=== PATIENT | female | born 1960 | race Caucasian/White ===

== ENCOUNTER 2019-09-04 16:44 | Emergency (ER) | payer OTHER, SELFPAY ==
[2019-09-04 16:51] VITALS: BP 148/76; PULSE 84; RESP 16; TEMP 36.4; O2SAT 99
--- NOTE | 2019-09-04 16:58 | ED.FEMALEGU ---
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 Patient states that clear vaginal drainage and itchiness started approximately 1 month ago and she was using badges so which seemed to cleared up . Patient states that then came and went and she started using the Monistat 7 which made it much worse this past week . Patient states that the irritation and itchiness is from her darin-region extending into the buttocks. Patient denies any recent use of new creams, lotions, body wash. Denies any excessive exercise or sitting in sweaty/wet clothing. Denies of any douching or recent long baths. Patient does not have any history of chronic yeast infections. States that she went through menopause approximately 5 years ago and has not had any issues with vaginal dryness. Patient denies of any urinary symptoms. No other acute complaints. No acute distress noted. Patient read the plan of care. Related Data Home Medications Medication Instructions Recorded Confirmed cholecalciferol (vitamin D3) 2,000 unit PO HS 12/30/18 09/04/19 cyanocobalamin (vitamin B-12) 1,000 mcg PO HS 12/30/18 09/04/19 omeprazole 40 mg PO HS 12/30/18 09/04/19 Allergies Allergy/AdvReac Type Severity Reaction Status Date / Time NSAIDS (Non-Steroidal AdvReac BLEEDING Verified 09/04/19 17:04 Anti-Inflamma ULCER Review of Systems Review of Systems: Narrative: CONSTITUTIONAL: Denies fever, chills, or sweats. EYES: Denies visual changes, redness, or discharge. ENT: Denies rhinorrhea, congestion, sore throat, or otalgia. CARDIOVASCULAR: Denies chest pain, palpitations, or edema. RESPIRATORY: Denies cough or dyspnea. GASTROINTESTINAL: Denies abdominal pain, nausea, vomiting, or diarrhea. GENITOURINARY: Reports of vaginal irritation, redness, itchiness, clear vaginal discharge and burning SKIN: Denies rash or itching. MUSCULOSKELETAL: Denies back pain, joint pain, or myalgia. NEUROLOGIC: Denies headache, numbness, or weakness. All other systems reviewed are negative, except as documented in HPI. PMFSH Social History Social History Smoking status: Former smoker Second hand tobacco smoke exposure: No Smoking end date: 02/22/07 Alcohol intake: current Comments At the time of my signature, I reviewed and agree with the nursing past medical, surgical, social, and family history. There is no relevant family history pertinent to the patient complaint. Exam Narrative: Exam Narrative: GENERAL: This is a well-nourished, well-developed patient, in no apparent distress. HEAD: normocephalic, atraumatic. EYES: PERRL. Sclera clear/white. Vision is grossly intact. EARS: External ears normal NOSE: External nose normal with no obvious nasal discharge, nares without redness, no rhinorrhea. THROAT: Mucous membranes moist NECK: Neck supple : Patient deferred vaginal exam. Surrounding darin-area erythemic and irritated SKIN: warm, intact with no suspicious lesions or rash, good texture and turgor. NEURO: awake, alert, and oriented to person, place and time. There were no obvious focal neurologic abnormalities. EXTREMITIES: No clubbing, cyanosis, or edema. Course Vital Signs Vital signs: Vital Signs Temperature 97.5 F L 09/04/19 16:51 Pulse Rate 84 09/04/19 16:51 Respiratory Rate 16 09/04/19 16:51 Blood Pressure 148/76 H 09/04/19 16:51 Pulse Oximetry 99 09/04/19 16:51 Temperature 97.5 F L 09/04/19 16:51 Pulse Rate 84 09/04/19 16:51 Respiratory Rate 16 09/04/19 16:51 Blood Pressure 148/76 H 09/04/19 16:51 Pulse Oximetry 99 09/04/19 16:51 Reviewed?patient is informed that they may have pre
== END 2019-09-04 17:20 | disposition home or self-care (01) ==
PROVIDERS: Emergency Provider Nurse Practitioner Family; PCP Internal Medicine
DX: N89.8 Other specified noninflammatory disorders of vagina (principal); Z87.891 Personal history of nicotine dependence
CPT/HCPCS: 81003; 99213; G0463

== ENCOUNTER 2020-12-09 08:58 | Outpatient (CLI) | payer OTHER, SELFPAY ==
--- NOTE | ~2020-12-09 | NM_ITS ---
EXAMINATION: NM hernandez stress w perfusion DATE: 12/09/2020 11:31 INDICATION: Dizziness and giddiness. Hypertension. TECHNIQUE: Rest images were obtained following intravenous administration of 10.4 mCi Tc99m tetrofosm in (Myoview). The patient was infused intravenously with Lexiscan (Regadenoson). Then, 31.7 mCi Tc99m tetrofosmin (Myoview) was administered intravenously, and stress images were obtained in the supine position. Post-rest images were also obtained in the prone position due to breast attenuation artifac t on the anterior wall. Data was reconstructed into short axis and horizontal and vertical long axis SPECT images. Gated SPECT images were also obtained. COMPARISON: None. FINDINGS: There is no definite reversible or fixed perfusion abnormality to suggest ischemia or infar ction. There is normal left ventricular chamber size, wall motion and ejection fraction. Left ventr icular ejection fraction measures 62%. IMPRESSION: 1. Normal myocardial perfusion at rest and during stress. 2. Left ventricular ejection fraction measuring 62%. Reviewed, dictated and finalized at location A.
--- NOTE | 2020-12-09 09:30 | EST_ITS ---
Patient Info Name: Dai Cintron Age: 60 years : 1960 Gender: Female Ht: 67 in Wt: 215 lbs BSA: 2.18 m2 HR: 69 bpm BP: 151 / 98 mmHg Heart Rhythm: Sinus Rhythm Exam Date: 12/09/2020 10:17 AM Exam Location: [facility] Stress Patient Status: Outpatient Admit Date: 12/09/2020 Staff Ordering Physician: Zari Blake Attending Provider: Zari Blake Exercise Technologist: Barbi Choe CT Exercise Physician: Donis Capps DO Exam Type: CA stress hernandez w NM Study Info A regadenoson stress test was performed. Summary 1. 1. Negative lexiscan stress test for ischemic ST changes by ECG criteria. 2. 2. Baseline hypertension. 3. 3. Nuclear scan to follow and will be reported separately. Please correlate with it. 4. 4. Patient informed of the above results. Protocol: Lexiscan Stress ECG Details Stage: REST Duration (min): 0 min : 48 sec HR (bpm): 70 SBP (mmHg): 151 DBP (mmHg): 98 Stage: REST Duration (min): 5 min : 38 sec HR (bpm): 68 SBP (mmHg): 151 DBP (mmHg): 98 Stage: STAGE 1 Duration (min): 1 min : 0 sec HR (bpm): 87 SBP (mmHg): 169 DBP (mmHg): 90 Stage: RECOVERY Duration (min): 1 min : 0 sec HR (bpm): 94 SBP (mmHg): 169 DBP (mmHg): 90 Stage: RECOVERY Duration (min): 2 min : 0 sec HR (bpm): 88 SBP (mmHg): 169 DBP (mmHg): 90 Stage: RECOVERY Duration (min): 2 min : 37 sec HR (bpm): 89 SBP (mmHg): 170 DBP (mmHg): 92 Rest HR: 68 bpm Peak HR: 97 bpm Rest Sys BP: 151 mmHg Peak Sys BP: 170 mmHg Max Pred HR: 162 bpm % Max Pred HR: 60 % Target HR: 138 bpm Max RPP: 16,490 bpm*mmHg Termination Reason: Completed protocol Cardiac Symptoms: Shortness of breath Total Time: 1 min : 0 sec Rest Albright BP: 98 mmHg Peak Albright BP: 92 mmHg Total Dose: 0.4 mg Resting ECG Sinus rhythm. Stress ECG No ST changes. Arrhythmias None. Report Signatures
[2020-12-09 12:10] LABS: Basophils Absolute Auto 0.1 K/mm3 (0.0-0.1); Basophils Percent Auto 0.7 % (0.2-1.2); Eosinophils Absolute Auto 0.1 K/mm3 (0-0.3); Eosinophils Percent Auto 1.2 % (0-4.4); Hematocrit 45.2 % (37.0-47.0); Hemoglobin 15.2 g/dL (12.0-15.0); Immature Granulocyte Absolute 0.04 K/mm3 (0.00-0.031); Immature Granulocyte Percent A 0.4 % (0-0.5); Lymphocytes Absolute Auto 2.59 K/mm3 (0.9-3.2); Lymphocytes Percent Auto 28.6 % (18.3-44.2); Mean Corpuscular HGB Conc 33.6 g/dl (32-36); Mean Corpuscular Hemoglobin 29.2 pg (26-34); Mean Corpuscular Volume 86.9 fl (80-100); Mean Platelet Volume 9.4 fl (7.4-10.4); Monocytes Absolute Auto 0.6 K/mm3 (0.1-0.6); Monocytes Percent Auto 6.2 % (2.6-8.5); Neutrophils Absolute Auto 5.7 K/mm3 (1.3-6.7); Neutrophils Percent Auto 62.9 % (45.5-73.1); Platelet Count Result 337 k/mm3 (150-375); Red Cell Distribution Width 12.8 % (11.5-14.5); White Blood Count 9.1 K/mm3 (4.5-10.0)
[2020-12-09 12:27] LABS: Alanine Aminotransferase 73 U/L (4-35); Alkaline Phosphatase 79 U/L (38-126); Anion Gap 9 mmol/L (8-16); Aspartate Amino Transferase 70 U/L (14-36); Bilirubin,Total 0.8 mg/dL (0.2-1.3); Blood Urea Nitrogen 13 mg/dL (7-17); Calcium 10.2 mg/dL (8.4-10.2); Carbon Dioxide 31 mmol/L (22-30); Chloride 102 mmol/L (98-107); Cholesterol 177 mg/dL (0-200); Estimated Glomerular Filt Rate > 60; Glucose 91 mg/dL (65-110); HDL Direct 74 mg/dL; Potassium 4.1 mmol/L (3.4-5.0); Sodium 142 mmol/L (137-145); Triglycerides 118 mg/dL (<150)
[2020-12-09 12:38] LABS: LDL Cholesterol Direct 75 mg/dL
[2020-12-09 12:54] LABS: Vitamin D 25 Hydroxy 49.5 ng/mL
== END 2020-12-09 08:59 | disposition home or self-care (01) ==
LOC: ANHCARD 09:02
PROVIDERS: PCP Internal Medicine; Visit Provider Clinical Nurse Specialist
DX: E55.9 Vitamin D deficiency, unspecified (principal); R42 Dizziness and giddiness; I10 Essential (primary) hypertension; Z13.228 Encounter for screening for other metabolic disorders
CPT/HCPCS: 36415; 78452; 80053; 80061; 82306; 84443; 85025; 93017; A9502; J2785

== ENCOUNTER 2021-03-25 15:53 | Outpatient (CLI) | payer OTHER, SELFPAY ==
--- NOTE | ~2021-03-25 | CT_ITS ---
EXAMINATION: CTA chest PE protocol DATE: 03/25/2021 16:30 INDICATION: Shortness of breath. COVID positive. TECHNIQUE: Computed tomography (CT) pulmonary angiogram of the chest was performed with 100 mL Omnipa que-350 intravenous contrast. Additional 3D reconstructions utilizing coronal maximum intensity proje ction (MIP) were performed. Automated exposure control and iterative reconstruction technique were em ployed. The dose-length product was 472.11 mGy-cm. COMPARISON: None FINDINGS: Excellent contrast opacification of the pulmonary arteries. There is mild streak artifact from dense contrast in the superior vena cava and right atrium. Minimal scattered respiratory motion artifact wh ich does not significantly limit evaluation. No pulmonary embolism. Peripheral predominant patchy gregg undglass opacities and consolidation throughout both lungs relatively sparing the apices with appeara nce typical for COVID pneumonia. No pleural effusion or pneumothorax. Heart size is normal. No perica rdial effusion. Small amount of atherosclerotic coronary artery calcification at the origin of the le ft coronary artery. Thoracic aorta is normal in caliber with no dissection. Mild likely reactive righ t hilar and mediastinal lymphadenopathy. Cholecystectomy clips the gallbladder fossa. Diffuse hepatic steatosis. Moderate thoracic spondylosis. IMPRESSION: 1. No pulmonary embolism. 2. Scattered bilateral patchy peripheral predominant patchy consolidation and groundglass opacities m ost consistent with COVID pneumonia. 3. Mild likely reactive right hilar and mediastinal lymphadenopathy. Reviewed, dictated and finalized at location A. TH CONCIERGE IMPRESSION: 1. No pulmonary embolism. 2. Scattered bilateral patchy peripheral predominant patchy consolidation and g roundglass opacities most consistent with COVID pneumonia. 3. Mild likely reactive right hilar and mediastinal lymphadenopathy.
[2021-03-25 16:22] LABS: Estimated Glomerular Filt Rate > 60
== END 2021-03-25 15:54 | disposition home or self-care (01) ==
LOC: ANHIMG 15:56
PROVIDERS: PCP Internal Medicine; Visit Provider Internal Medicine
DX: R06.02 Shortness of breath (principal); R09.02 Hypoxemia; R06.00 Dyspnea, unspecified; R91.8 Other nonspecific abnormal finding of lung field; R59.0 Localized enlarged lymph nodes
CPT/HCPCS: 71275; Q9967

== ENCOUNTER 2022-02-12 09:27 | Outpatient (CLI) | payer OTHER, SELFPAY ==
[2022-02-12 18:56] LABS: Basophils Absolute Auto 0.1 K/mm3 (0.0-0.1); Basophils Percent Auto 1.1 % (0.2-1.2); Eosinophils Absolute Auto 0.1 K/mm3 (0-0.3); Eosinophils Percent Auto 1.8 % (0-4.4); Hematocrit 43.9 % (37.0-47.0); Hemoglobin 14.8 g/dL (12.0-15.0); Immature Granulocyte Absolute 0.01 K/mm3 (0.00-0.031); Immature Granulocyte Percent A 0.2 % (0-0.5); Lymphocytes Percent Auto 29.1 % (18.3-44.2); Mean Corpuscular HGB Conc 33.7 g/dl (32-36); Mean Corpuscular Hemoglobin 29.5 pg (26-34); Mean Corpuscular Volume 87.5 fl (80-100); Mean Platelet Volume 9.9 fl (7.4-10.4); Monocytes Absolute Auto 0.6 K/mm3 (0.1-0.6); Monocytes Percent Auto 8.6 % (2.6-8.5); Neutrophils Absolute Auto 3.9 K/mm3 (1.3-6.7); Neutrophils Percent Auto 59.2 % (45.5-73.1); Platelet Count Result 305 k/mm3 (150-375); Red Blood Count 5.02 M/mm3 (4.2-5.4); White Blood Count 6.5 K/mm3 (4.5-10.0)
[2022-02-12 19:00] LABS: Alanine Aminotransferase 22 U/L (6-35); Albumin Level 4.4 g/dL (3.5-5.1); Alkaline Phosphatase 62 U/L (38-126); Anion Gap 4 mmol/L (8-16); Aspartate Amino Transferase 29 U/L (14-36); Bilirubin,Total 0.5 mg/dL (0.2-1.3); Blood Urea Nitrogen 17 mg/dL (7-17); Calcium 9.3 mg/dL (8.4-10.2); Carbon Dioxide 31 mmol/L (22-30); Chloride 104 mmol/L (98-107); Cholesterol 174 mg/dL (0-200); Estimated Glomerular Filt Rate > 60; Glucose 88 mg/dL (65-110); HDL Direct 65 mg/dL; Potassium 4.5 mmol/L (3.4-5.0); Sodium 139 mmol/L (137-145); Triglycerides 73 mg/dL (<150)
[2022-02-12 19:11] LABS: LDL Cholesterol Direct 77 mg/dL
[2022-02-12 19:17] LABS: Creatinine Urine 123.7 mg/dL
[2022-02-12 19:22] LABS: MALB Creatinine Ratio 5.7 mg/g (0-30)
== END 2022-02-12 09:28 | disposition home or self-care (01) ==
LOC: ANHGOSHLAB 09:29
PROVIDERS: PCP Internal Medicine; Visit Provider Internal Medicine
DX: R74.01 Elevation of levels of liver transaminase levels (principal); I10 Essential (primary) hypertension
CPT/HCPCS: 36415; 80053; 80061; 82043; 85025

== ENCOUNTER 2022-09-08 00:39 | Day surgery (SDC) | payer OTHER, SELFPAY ==
[2022-07-10 09:17] VITALS: BMI 30.4
[2022-08-28 13:23] VITALS: BMI 30.4
[2022-09-08 06:25] VITALS: BP 147/84; PULSE 74; RESP 20; TEMP 36.1; O2SAT 97
[2022-09-08] MEDS: LACTATED RINGERS 1,000 ML 150 ML IV CONT (06:38)
--- NOTE | 2022-09-08 07:18 | WPDANESEPPF ---
Anes - Initial Pre Proc Eval Procedure: Operation Date: 09/08/22 07:30 Proposed Procedures p Colonoscopy - Michael Worthy MD Date/Time: 09/08/22 07:18 Surgeon: Michael Worthy MD Pre Op Diagnosis: other fecal abnormalities Patient Data Age: 62 Gender: F Height: 1.7 m Weight: 90.9 kg Last Vital Signs Temp 97 F L 09/08/22 06:25 Pulse 74 09/08/22 06:25 Resp 20 09/08/22 06:25 BP 147/84 H 09/08/22 06:25 Pulse Ox 97 09/08/22 06:25 O2 Del Method Room Air 09/08/22 06:25 Allergies Allergy/AdvReac Type Severity Reaction Status Date / Time NSAIDS (Non-Steroidal AdvReac BLEEDING Verified 09/08/22 06:24 Anti-Inflamma ULCER Home Medications Medication Instructions Recorded Confirmed Type omeprazole 40 mg capsule,delayed 20 mg PO HS 04/01/21 09/07/22 History release sodium,potassium,mag sulfates 17.5 See Rx Instructions PO .COMPLEX 07/27/22 09/07/22 Rx gram-3.13 gram-1.6 gram oral soln #354 mL (Suprep Bowel Prep Kit) doxepin 25 mg capsule 25 mg PO QHS PRN insomnia #30 caps 08/20/22 09/07/22 Rx valsartan 80 mg tablet 80 mg PO DAILY #90 tabs 09/04/22 09/07/22 Rx Patient hx anesthesia problems: none Family hx anesthesia problems: none Results Review: All pre-operative results and documents have been reviewed as part of the pre-operative evaluation. [facility] Past Medical History Medical History Cholecystectomy planned Effusion of knee joint Hypertension Painful patella Surgical History Surgical History H/O: hysterectomy 05/2020 History of Knee joint replacement status Family History Family History Mother Hypertension Father Patient's father is in good health Social History Social History Smoking packs per day: 1 Smoking cigarettes per day: 20.0 Years smoked: 20 Smoking pack-years: 20.00 Smoking status: Former smoker Tobacco type: cigarettes Second hand tobacco smoke exposure: No Smoking end date: 02/22/07 Alcohol intake: never Alcohol use details: occasional Substance use: never Substance use type: does not use Lack of Transportation: No Lack of Food: Never True Current Housing: I Have Housing Concerned About Future Housing: No Difficulty Paying Gas/Electric Bills: No Difficulty Paying for Meds: No Currently Unemployed: No Education: High School Diploma/GED Difficulty w/ Childcare or Family Care: No Living arrangements: with family Gender identity (if verbalized by the patient): Female Spiritual care concerns: No Anes - Eval Final PreProcedure Day of Procedure 09/08/22 07:18 Patient weight: obese Heart: regular rate and rhythm Lungs: clear to auscultation Airway: Mallampati scale class II Neurological: alert and oriented Last oral intake: >/= 8 hours ASA classification: III Emergent: no Anesthetic plan: proceed Anesthesia type and monitoring: general GIVS and standard monitoring Results Review: All pre-operative results and documents have been reviewed as part of the pre-operative evaluation. Informed Consent: The patient's anesthetic plan and its attendant risks and benefits were discussed with the patient/family/POA. Questions were solicited and answers provided to the satisfaction of the patient/family/POA.
--- NOTE | 2022-09-08 07:33 | PM.HPGS ---
History of Present Illness History of Present Illness Consent: Risks, benefits, and alternatives have been discussed and questions answered. Patient agrees to proceed with procedure. Chief complaint: positive cologuard test Narrative: Dai Cintron is a 62 year old female Presents for screening colonoscopy. Patient's current weight appetite and bowel movements are normal. Patient denies abdominal pain. She has had no bleeding. Recent Cologuard test was found to be positive. Patient reports her bowel habits are normal. She denies any blood in her stools. Family history is noncontributory. Review of Systems Review of Systems: Review of systems noncontributory. [facility] Past Medical History Medical History Cholecystectomy planned Effusion of knee joint Hypertension Painful patella Surgical History Surgical History H/O: hysterectomy 05/2020 History of Knee joint replacement status Family History Family History Mother Hypertension Father Patient's father is in good health Social History Social History Smoking packs per day: 1 Smoking cigarettes per day: 20.0 Years smoked: 20 Smoking pack-years: 20.00 Smoking status: Former smoker Tobacco type: cigarettes Second hand tobacco smoke exposure: No Smoking end date: 02/22/07 Alcohol intake: never Alcohol use details: occasional Substance use: never Substance use type: does not use Lack of Transportation: No Lack of Food: Never True Current Housing: I Have Housing Concerned About Future Housing: No Difficulty Paying Gas/Electric Bills: No Difficulty Paying for Meds: No Currently Unemployed: No Education: High School Diploma/GED Difficulty w/ Childcare or Family Care: No Living arrangements: with family Gender identity (if verbalized by the patient): Female Spiritual care concerns: No Meds Home Medications and Allergies Home Medications Medication Instructions Recorded Confirmed Type omeprazole 40 mg capsule,delayed 20 mg PO HS 04/01/21 09/07/22 History release sodium,potassium,mag sulfates 17.5 See Rx Instructions PO .COMPLEX 07/27/22 09/07/22 Rx gram-3.13 gram-1.6 gram oral soln #354 mL (Suprep Bowel Prep Kit) doxepin 25 mg capsule 25 mg PO QHS PRN insomnia #30 caps 08/20/22 09/07/22 Rx valsartan 80 mg tablet 80 mg PO DAILY #90 tabs 09/04/22 09/07/22 Rx Allergies Allergy/AdvReac Type Severity Reaction Status Date / Time NSAIDS (Non-Steroidal AdvReac BLEEDING Verified 09/08/22 06:24 Anti-Inflamma ULCER Vital Signs Vital Signs - 24 hr 09/08/22 06:25 Temperature 97 F L Pulse Rate 74 Respiratory Rate 20 Blood Pressure 147/84 H Pulse Oximetry 97 Oxygen Delivery Room Air Exam Narrative: Physical exam reveals patient to be alert. Vital signs stable. HEENT exam is unremarkable. Patient is anicteric. Lungs are clear to auscultation and percussion. Heart is without murmur or extra sounds. Abdomen bowel sounds are present soft nontender with no organomegaly. Digital external rectal exam is normal. Assessment and Plan Assessment and plan (1) Positive colorectal cancer screening using Cologuard test: Code(s): R19.5 - Other fecal abnormalities Status: Acute Assessment and Plan: Patient found to have a positive screening Cologuard test. For this reason colonoscopy will be performed. Further recommendations may be given after endoscopy.
[2022-09-08 07:58] VITALS: BP 134/84; PULSE 86; RESP 37; O2SAT 95
[2022-09-08 08:08] VITALS: BP 122/77; PULSE 76; RESP 16; O2SAT 100
[2022-09-08 08:18] VITALS: BP 121/70; PULSE 65; RESP 22; O2SAT 100
== END 2022-09-08 08:22 | disposition home or self-care (01) ==
PROVIDERS: PCP Internal Medicine; Visit Provider Internal Medicine Gastroenterology
PROC: 0DJD8ZZ Inspection of Lower Intestinal Tract, Via Natural or Artificial Opening Endoscopic (ICD-10-PCS; CPT 45378; principal; 2022-09-08 07:30)
DX: Z12.11 Encounter for screening for malignant neoplasm of colon (principal); K63.5 Polyp of colon; R19.5 Other fecal abnormalities; K57.30 Diverticulosis of large intestine without perforation or abscess without bleeding; K64.8 Other hemorrhoids; I10 Essential (primary) hypertension; Z87.891 Personal history of nicotine dependence; E66.9 Obesity, unspecified; Z68.31 Body mass index [BMI] 31.0-31.9, adult
CPT/HCPCS: 45385; 88305; J7120

== ENCOUNTER 2024-08-03 14:17 | Outpatient (CLI) | payer OTHER, SELFPAY ==
--- NOTE | ~2024-08-03 | XR_ITS ---
Left Knee Technique: AP, lateral, and sunrise views were obtained. Clinical History: Pain Findings: No fracture or dislocation is seen. Osseous alignment is anatomic. There is mild to moderat e tricompartmental degenerative change. Soft tissues are unremarkable. No joint effusion is seen. Impression: Mild to moderate tricompartmental degenerative change. Reviewed, dictated and finalized at location . Impression: Mild to moderate tricompartmental degenerative change.
--- OUTSIDE RECORDS SUMMARY | 2024-08-03 14:24 | XMS_ITS | Encounter Summary ---
Author Organization [facility] Health Address [address] [place] [address] Care Team Providers Care Geotechnical Laboratory Technician Name Role Phone Unavailable Primary Care Provider Unavailabl e Reason for Visit * Reason Comments Refill Request Encounter Details Date Type Department Care Team (Late st Contact Info) Description 03/17/2021 Refill [facility] [address] [place] [address] Morena Hardin MD [address] [address] Refill Request Social History Tobacco Use Types Packs/Day Years Used Date Smoking Tobacco: Never Smokeless Tobacco: Never Alcohol Use Standard Drinks/Week Comments Not Currently 0 (1 standard drink = 0.6 oz pur e alcohol) Comments No Sex and Gender Information Value Date Recorded Sex Assigned at Not on file Legal Sex Female 2:06 PM CDT Gender Identity Not on file Sexual Orientation Not on file documented as of this encounter Plan of Treatment Not on file documented as of this encounter Visit Diagnoses Not on filedocumented in this encounter
--- OUTSIDE RECORDS SUMMARY | 2024-08-03 14:24 | XMS_ITS | Continuity of Care Document ---
Author Organization [facility] Address [address] [place] [address] Phone Care Team Providers Care Vmware Administrator Name Role Phone Ksenia Martinez MD Unavailable Unavailable Allergies, Adverse Reactions, Alerts Substance Reaction Status Criticality No Known Allergies Active No Inform ation Medications Medication Instructions Dosage Effective Dates (start - stop) Status Comments estradiol 0.5 mg tablet take 1 tablet by oral route every day for hot flashes - Active tramadol 50 mg tablet take 1 tablet by oral route every 6 hours as needed 50 MG - Active [facility] reviewed lisinopril 20 mg tablet take 1 tablet by oral route every day 20 MG - Active omeprazole 20 mg tablet,delayed release take 1 by Oral route every day 1 - Active Procedures Procedure Date Drug test presumpt, any # drug cla, rd o nly dir opti Venipuncture Office/outpatient visit,new, mod 2023 Automated hemogram (CBC) HIV-1 AG W/HIV-1 & HIV-2 AB (EIA, SHIKHA, ZONIA) Antibody, hepatitis C Lipid Panel Metabolic panel, comprehensive Advance Directives Directive Yes / No Effective Date File Name No Information Encounters Encounter Description Practice Location Reason(s) For Visit Diagnoses Date Provider Providers Copied on Encounter [facility], [address] [place], [place], [id number] tel:[phone] [facility] No Information 5 Juan Arieal. [address] [place], [place], [id number] . tel: [phone] Office/outpa tient visit,[facility], [address] [place], [place], [id number] tel:[phone] [facility] Nursing Comments (chief complaint) New pt. (chief complaint) Body mass index [BMI] 35.0-35.9, adultEssential hypertensionChronic pain of right kneeOther chronic painHx of ovarian cancerHistory of total hysterectomyPUD (peptic ulcer disease)Encounter for screening mammogram for malignant neoplasm of breastEncounter for hepatitis C screening test for low risk patientScreening for HIV (human immunodeficiency virus)Screening for lipid disordersHot flushes, perimenopausal 4 Juan Arieal. [address] [place], [place], [id number] . tel: [phone] Family History Family Member Type Diagnosis Age At Onset Mother Problem (finding) Alzheimer's disease Mother Problem (finding) Hypertension Sister Problem (finding) Obesity Brother Problem (finding) Obesity Maternal grandmother Problem (finding) Hypertension Mother Problem (finding) Obesity Payers Payer name Insurance type Covered libertarian ID Authoriza tirisa(s) [facility] [id number] Social History Type Description Quantity Date Captured Comments Sex Female Smoking Status No Information Sexual Orientation Choose not to disclose Gender Identity Female Plan Of Treatment Date Type Action Status Goal Lifestyle education regardin g diet completed Referral Ordered: Referrals: Diagnostic Radiology. Referral .Screening Mammogram, bilateral (2 vw ea breast) Appointment date/timeframe: 05/28/2023 ordered Referral Ordered: Referrals: Diagnostic Radiology. Referral .Screening Mammogram, bilateral (2 vw ea breast) Appointment date/timeframe: 05/28/2023 ordered Referral Ordered: Screening Mammogram, bilateral (2 vw ea breast) Appointment date/timeframe: 05/28/2023 ordered Referral Ordered: Referrals: Diagnostic Radiology. Referral .Screening Mammogram, bilateral (2 vw ea breast) Appointment date/timeframe: 05/28/2023 ordered Referral Ordered: Referrals: Diagnostic Radiology. Referral .Screening Mammogram, bilateral (2 vw ea breast) Appointment date/timeframe: 05/28/2023 ordered Referral Ordered: Referrals: Diagnostic Radiology. Referral .Screening Mammogram, bilateral (2 vw ea breast) Appointment date/timeframe: 05/28/2023 ordered Referral Ordered: Referrals: Diagnostic Radiology. Referral .Screening Mammogram, bilateral (2 vw ea breast) Appointment date/timeframe: 05/28/2023 ordered History Of Present Illness Encounter Date Complaint History Of Prese nt Illness Nursing Comments Pt presents to establish care,Etho; No Tobacco; No Substance use; No Hosp? NoSocial history : Occupation; unemployed living situation; lives with Martial status; MarriedG 3 P 3 LMP; 8 yrs ago Hx of STD: No Contraception: No Last PAP: 2022 Sexual Hx Yes: # of partners: 1 Using condoms: NoPharmacy verified; Yes COVID vaccine; No Fasting; No Travel; No Flu shot; No MA, MANAGER ACQUISITION. New pt. 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 HTN Pt reports medical adherence to lisinoprilDenies dizziness, headache, nausea, chest pain, SOB, leg edema Due for labsOvarian cancerPt diagnosed in April 2019 s/p total hysterectomy and BLO.Tolerating estradiol for hot flashes due for mammogram Right knee Pt is s/[place] tram[place] needed and if tylenol is ineffective. She uses an all natural pain patch intermittentlyPUD Reports hx of hemorrhage. She take omeprazole daily Functional Status Date Functional Assessmen t No Information Instructions Date Instruction Additional Infor mation Giving encouragement to exercise Related to Body mass index [BMI] 35.0-35.9, adult Feb-06-2024 Lifestyle education regarding di et Related to Body mass index [BMI] 35.0-35.9, adult Assessments Type Assessment Date No Information Patient Care Teams Name Effective Dates (start - stop) Status Members No Information
--- OUTSIDE RECORDS SUMMARY | 2024-08-03 14:24 | XMS_ITS | Clinical Summary ---
Author Organization [facility] Dispatch Address [address] [place] [address] Care Team Providers Care Rayon Coner Name Role Phone Unavailable Primary Care Provider Unavailabl e Source Comments [facility],non-owned Affiliates and Associated Physician Practices is amultiple site organization consisting of ambulatory clinics and hospital sitesin [place], [place], [place] and [place]. This disclosure is being madepursuant to the Care Everywhere program and may not contain all information available regarding this patient. Last updated 17.[facility] Allergies No known active allergies Medications * Be aware that medications may not be up to date on this document. Alwaysverify current medications with the patient. hydroCHLOROthia zide (HYDRODIURIL) 12.5 MG Take 12.5 mg by mouth 0 Active lisinopril (PRINIVIL; ZESTRIL) 20 MG tablet Take 20 mg by mouth once daily 1 Active lidocaine (XYLOCAINE) 5 % ointment Apply small amount of ointment at skin irritation site twice a day as needed.Use smallest effective amount. 30 g 1 Active Additional Information Patient taking differently: Topical DAILY, Apply small amount of ointment at skin irritation site twice a day as needed.Use smallest effective amount., Reported on 12/25/2020 venlafaxine (EFFEXOR) 37.5 MG tablet Take 1 (one) tablet by mouth 2 times daily 180 tablet 4 1 Active traMADol (ULTRAM) 50 MG tablet Take 50 mg by mouth once 1 Active neomycin-polymy bernardino-dexameth (MAXITROL) ophthalmic suspension Instill 2 drops into left eye 3 times daily 1 Active clobetasol (TEMOVATE) 0.05 % cream Apply to affected area 2 times daily x1 month and then daily x 2 months 45 g 1 Active ondansetron, disintegrating, (ZOFRAN ODT) 8 MG tablet Take 8 mg by mouth every 8 hours as needed 2 Active estradiol (ESTRACE) 0.5 MG tablet Take 1 (one) tablet by mouth once daily 90 tablet 3 2 Active Active Problems Problem Noted Date Diagnosed Date Vulvar pruritus 12/25/2020 Vasomotor symptoms due to menopause 06/19/2020 S/P total hysterectomy and B SO (bilateral salpingo-oophorectomy) 06/04/2020 Endometrial cancer 05/20/2020 Cancer Staging:Pathologic stage from 05/23/2020:FIGO Stage IA(pT1a, pN0, cM0) - Signed by Morena Hardin MD on 06/19/2020 HTN (hypertension) 07/04/2019 Overview (06/04/2020): Last Assessment & Plan: Condition: stable Follow up in: three months Knee pain 08/20/2014 Overview (06/04/2020): Last Assessment & Plan: Condition: stable Follow up in: three months or sooner as recommended Social History Tobacco Use Types Packs/Day Years Used Date Smoking Tobacco: Never Smokeless Tobacco: Never Alcohol Use Standard Drinks/Week Comments Not Currently 0 (1 standard drink = 0.6 oz pur e alcohol) Comments No Sex and Gender Information Value Date Recorded Sex Assigned at Not on file Legal Sex Female 2:06 PM CDT Gender Identity Not on file Sexual Orientation Not on file Last Filed Vital Signs Vital Sign Reading Time Taken Comments Blood Pressure 142/90 06/24/2021 1:10 PM CDT Pulse 52 05/23/2020 2:28 PM CDT Temperature 35.8 C (96.5 F) 05/23/2020 1:46 PM CDT Respiratory Rate 18 05/23/2020 2:28 PM CDT Oxygen Saturation 100% 05/23/2020 2:28 PM CDT Inhaled Oxygen Concentration - - Weight 88.9 kg (196 lb) 06/24/2021 1:10 PM CDT Height 167.6 cm (5' 6) 06/24/2021 1:10 PM CDT Body Mass Index 31.64 06/24/2021 1:10 PM CDT Plan of Treatment Health Maintenance Due Date Last Done Comments COLOGUARD (AGES 45-75) - COL ON CA SCREENING 1962 COLON MONITORING 1962 COLONOSCOPY - COLON CA SCREENING 1962 CT COLONOGRAPHY - COLON CA SCREENING 1962 FLEX SIG - COLON CA SCREENING 1962 LIPID TESTING 1962 MAMMOGRAM 1962 HIV SCREENING 1977 HEPATITIS C SCREENING 06/12/1980 DTAP/TDAP/TD VACCINES (1 - Tdap) 1981 PNEUMOCOCCAL VACCINE 50+ (1 of 1 - PCV) 2012 ZOSTER VACCINE (1 of 2) 2012 Colorectal Cancer Screening 11/04/2020 FIT - COLON CA SCREENING 11/04/2020 11/05/2019 SCREENING FOR DIABETES 05/21/2023 05/20/2020 COVID-19 VACCINE (1 - 2023-2 5 season) 2023 DEPRESSION SCREENING 02/23/2024 INFLUENZA VACCINE (Season Ended) 2024 Respiratory Syncytial Virus (RSV) Vaccine Pt: or over 60 yrs (1 - 1-dose 75+ series) 2037 HEPATITIS B VACCINE Aged Out No longe r eligible based on patient's age to complete this topic HIB VACCINE Aged Out No longer eligi ble based on patient's age to complete this topic HPV VACCINE Aged Out No longer eligi ble based on patient's age to complete this topic MENINGOCOCCAL (Group B) VACC INE SHARED DECISION-MAKING Aged Out No longer eligibl e based on patient's age to complete this topic MENINGOCOCCAL GROUPS A/C/Y/W VACCINE Aged Out No longer eligible b ased on patient's age to complete this topic Procedures Procedure Name Priority Date/Time Associated Diagnosis Comments COMPREHENSIVE METABOLIC PANEL Pre-Op 05/20/2020 12:26 PM CDT Pre-op testing from Last 3 Months or Most Recently Relevant to Health Maintenance Results * (ABNORMAL) COMPREHENSIVE METABOLIC PANEL (05/20/2020 12:26 PM CDT) Glucose 85 70 - 105 mg/dL 05/20/2020 1:00 PM CDT [facility] Sodium 140 136 - 145 mmol/L 05/20/2020 1:00 PM CDT [facility] Potassium 4.1 3.5 - 5.1 mmol/L 05/20/2020 1:00 PM CDT [facility] Chloride 108(H) 98 - 107 mmol/L 05/20/2020 1:00 PM CDT [facility] CO2 27 23 - 31 mmol/L 05/20/2020 1:00 PM CDT [facility] Calcium 9.2 8.4 - 10.4 mg/dL 05/20/2020 1:00 PM CDT [facility] Anion Gap 5(L) 8 - 18 mmol/L 05/20/2020 1:00 PM CDT [facility] Comment:Attention clinician: Reference Range change. BUN 12 9.8 - 20.1 mg/dL 05/20/2020 1:00 PM CDT [facility] Creatinine 0.77 0.57 - 1.11 mg/dL 05/20/2020 1:00 PM CDT [facility] Alkaline Phosphatase 84 40 - 150 U/L 05/20/2020 1:00 PM CDT [facility] Comment:Attention clinician: Reference Range change. ALT 29 0 - 61 U/L 05/20/2020 1:00 PM CDT [facility] AST 28 5 - 34 U/L 05/20/2020 1:00 PM CDT [facility] Protein Total 7.2 6.4 - 8.3 gm/dL 05/20/2020 1:00 PM CDT [facility] Albumin 4.1 3.5 - 5.2 gm/dL 05/20/2020 1:00 PM CDT [facility] Bilirubin Total 0.5 0.2 - 1.2 mg/dL 05/20/2020 1:00 PM CDT [facility] Comment:Attention clinician: Reference Range change. eGFR by MDRD >60 >60 mL/min/1.7 3m2 05/20/2020 1:00 PM CDT [facility] eGFR by MDRD >60 >60 mL/min/1.7 3m2 05/20/2020 1:00 PM CDT [facility] Blood BLOOD SPECIMEN / Unknown Venipuncture / Unknown 05/20/2020 12:26 PM CDT 05/20/2020 12:36 PM CDT Morena Hardin MD LAB - CHEMISTRY ORDERABLES Final Result [facility] [address] [place] [address] from Last 3 Months or Most Recently Relevant to Health Maintenance Insurance [facility]
[2024-08-03 14:37] LABS: Basophils Absolute Auto 0.1 K/mm3 (0.0-0.1); Basophils Percent Auto 0.7 % (0.2-1.2); Eosinophils Absolute Auto 0.1 K/mm3 (0-0.3); Eosinophils Percent Auto 1.1 % (0-4.4); Hemoglobin 15.4 g/dL (12.0-15.0); Immature Granulocyte Absolute 0.02 K/mm3 (0.00-0.031); Immature Granulocyte Percent A 0.3 % (0-0.5); Lymphocytes Absolute Auto 2.34 K/mm3 (0.9-3.2); Lymphocytes Percent Auto 32.4 % (18.3-44.2); Mean Corpuscular HGB Conc 33.5 g/dl (32-36); Mean Corpuscular Volume 89.7 fl (80-100); Mean Platelet Volume 9.5 fl (7.4-10.4); Monocytes Absolute Auto 0.7 K/mm3 (0.1-0.6); Monocytes Percent Auto 9.7 % (2.6-8.5); Neutrophils Percent Auto 55.8 % (45.5-73.1); Platelet Count Result 320 k/mm3 (150-375); Red Blood Count 5.13 M/mm3 (4.2-5.4); Red Cell Distribution Width 12.9 % (11.5-14.5); White Blood Count 7.2 K/mm3 (4.5-10.0)
[2024-08-03 14:53] LABS: Alanine Aminotransferase 34 U/L (6-35); Albumin Level 4.9 g/dL (3.5-5.1); Alkaline Phosphatase 58 U/L (38-126); Anion Gap 10 mmol/L (4-12); Aspartate Amino Transferase 36 U/L (14-36); Bilirubin,Total 0.5 mg/dL (0.2-1.3); Blood Urea Nitrogen 14 mg/dL (7-17); Calcium 10.1 mg/dL (8.4-10.2); Carbon Dioxide 26 mmol/L (22-30); Chloride 103 mmol/L (98-107); Cholesterol 194 mg/dL (0-200); Estimated Glomerular Filt Rate > 60; Glucose 92 mg/dL (65-110); HDL Direct 66 mg/dL; Potassium 4.5 mmol/L (3.4-5.0); Sodium 139 mmol/L (137-145); Total Protein 8.3 g/dL (6.3-8.2); Triglycerides 113 mg/dL (<150)
--- OUTSIDE RECORDS SUMMARY | 2024-08-03 14:55 | XMS_ITS | Encounter Summary ---
Author Organization [facility] Health Address [address] [place] [address] Care Team Providers Care Beater Engineer Helper Name Role Phone Unavailable Primary Care Provider Unavailabl e Reason for Visit * Reason Comments Refill Request Encounter Details Date Type Department Care Team (Late st Contact Info) Description 03/17/2021 Refill [facility] [address] [place] [address] Morena Hardin MD [address] [address] Refill Request Social History Tobacco Use Types [...]
--- OUTSIDE RECORDS SUMMARY | 2024-08-03 14:55 | XMS_ITS | Continuity of Care Document ---
Author Organization [facility] Address [address] [place] [address] Phone Care Team Providers Care Viscera Washer Name Role Phone Ksenia Martinez MD Unavailable Unavailable Allergies, Adverse Reactions, Alerts Substance Reaction Status Criticality No Known Allergies Active No Inform ation Medications Medication Instructions Dosage Effective Dates (start - stop) Status Comments estradiol 0.5 mg tablet take 1 tablet by oral route every day for hot flashes - Active lisinopril 20 mg tablet take 1 tablet by oral route every day 20 MG - Active tramadol 50 mg tablet take 1 tablet by oral route every 6 hours as needed 50 MG - Active [facility] reviewed omeprazole 20 mg tablet,delayed release take 1 [...] Diagnoses Date Provider Providers Copied on Encounter [facility], [address], [place], [id number] tel:[phone] [facility] No Information 5 Juan Arieal. [address] [place], [place], [id number] . tel: [phone] Office/outpa tient visit,[facility], [address] [place], [place], [id number] tel:[phone] [facility] Nursing Comments (chief complaint) New pt. (chief complaint) Body mass index [BMI] 35.0-35.9, adultEssential hypertensionChronic pain of right kneeOther chronic painHx of ovarian cancerHistory of total hysterectomyPUD (peptic ulcer disease)Encounter for screening mammogram for malignant neoplasm of breastEncounter for hepatitis C screening test for low risk patientScreening for HIV (human immunodeficiency virus)Screening for lipid disordersHot flushes, perimenopausal 4 Juan Arieal. [address] [place], [place], [id number] . tel: [phone] Family History Family Member Type Diagnosis Age At Onset Mother Problem (finding) Obesity Maternal grandmother Problem (finding) Hypertension Brother Problem (finding) Obesity Sister Problem (finding) Obesity Mother Problem (finding) Hypertension Mother Problem (finding) Alzheimer's disease Payers Payer name Insurance type Covered green party ID Authoriza jonny(s) [facility] [id number] Social History Type Description Quantity Date Captured [...] ordered Referral Ordered: Referrals: Diagnostic Radiology. Referral MD.Screening Mammogram, bilateral (2 vw ea breast) Appointment date/timeframe: 05/28/2023 ordered Referral Ordered: Referrals: Diagnostic Radiology. Referral MD.Screening Mammogram, bilateral (2 vw ea breast) Appointment date/timeframe: 05/28/2023 ordered Referral Ordered: Referrals: Diagnostic Radiology. Referral MD.Screening Mammogram, bilateral (2 vw ea breast) Appointment date/timeframe: 05/28/2023 ordered Referral Ordered: Referrals: Diagnostic Radiology. Referral MD.Screening Mammogram, bilateral (2 vw ea breast) Appointment date/timeframe: 05/28/2023 ordered History Of Present Illness Encounter Date Complaint History Of Prese nt Illness New pt. 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 HTN Pt [...] hx of hemorrhage. She take omeprazole daily Nursing Comments Pt presents to establish care,Etho; [...] No Travel; No Flu shot; No MA, SAP BW CONSULTANT. Functional Status Date Functional Assessmen t No [...]
--- OUTSIDE RECORDS SUMMARY | 2024-08-03 14:55 | XMS_ITS | Clinical Summary ---
Author Organization [facility] Address [address] [place] [address] Care Team Providers Care Reinsurance Clerk Name Role Phone Unavailable Primary Care Provider Unavailabl e Source Comments [facility],non-owned Affiliates and Associated Physician Practices is amultiple site organization consisting of ambulatory clinics and hospital sitesin [place], [place], [place] and [place]. This disclosure is being madepursuant to the Care Everywhere program and may not contain all information available regarding this patient. Last updated 17.[facility] Allergies No known active allergies Medications * [...] - 150 U/L 05/20/2020 1:00 PM CDT [facility] Comment:Attention clinician: Reference Range change. ALT [...] - 1.2 mg/dL 05/20/2020 1:00 PM CDT [facility] Comment:Attention clinician: Reference Range change. eGFR by MDRD >60 >60 mL/min/1.7 3m2 05/20/2020 1:00 PM CDT [facility] eGFR by MDRD >60 >60 mL/min/1.7 3m2 05/20/2020 1:00 PM CDT [facility] Blood BLOOD SPECIMEN / Unknown Venipuncture / Unknown 05/20/2020 12:26 PM CDT 05/20/2020 12:36 PM CDT Morena Hardin MD LAB - CHEMISTRY ORDERABLES Final Result [facility] [address] [place] [address] from Last 3 Months or Most Recently Relevant to Health Maintenance Insurance [facility]
[2024-08-03 15:03] LABS: LDL Cholesterol Direct 100 mg/dL
[2024-08-03 16:17] LABS: Vitamin D 25 Hydroxy 78.2 ng/mL
[2024-08-05 03:09] LABS: FSH 62.6 mIU/mL; LH 23.4 mIU/mL
[2024-08-07 15:25] LABS: Testosterone Free 1.6 pg/mL (0.1-6.4); Testosterone Total 17 ng/dL (2-45)
== END 2024-08-03 14:18 | disposition home or self-care (01) ==
PROVIDERS: Nurse Practitioner; PCP Internal Medicine; Visit Provider Clinical Nurse Specialist
DX: M17.12 Unilateral primary osteoarthritis, left knee (principal); I10 Essential (primary) hypertension; E55.9 Vitamin D deficiency, unspecified; R53.83 Other fatigue; R23.2 Flushing; R42 Dizziness and giddiness; E34.9 Endocrine disorder, unspecified; Z78.0 Asymptomatic menopausal state; Z13.228 Encounter for screening for other metabolic disorders
CPT/HCPCS: 36415; 73562; 80053; 80061; 82306; 82670; 83001; 83002; 84402; 84403; 84443; 85025